=== PATIENT | female | born 1965 | race African-American/Black ===

== ENCOUNTER 2016-07-06 22:00 | Emergency (ER) | payer MEDICAID ==
[~2016-07-06] VITALS: Ht 162.6 cm; Wt 72.6 kg
[2016-07-06 22:21] VITALS: BP 110/75
[2016-07-06] MEDS ORDERED: Norco 5mg/325mg tab ORAL ONE (22:30)
[2016-07-06] MEDS ORDERED: IBUPROFEN600 MG ORAL (23:19)
[2016-07-06] MEDS ORDERED: HYDROCODON-ACE1 EA15 ORAL (23:19)
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
[2016-07-06 23:26] VITALS: BP 110/75
--- NOTE | 2016-07-07 11:07 | Diagnostic Imaging Report ---
Indications: hip pain Findings: Two views of the right hip were obtained. No acute fracture is demonstrated. Alignment of the hip is within normal limits. There is an intramedullary susanna within the visualized proximal femur. There is an old healed fracture of the shaft of the proximal femur. There is some narrowing of the right hip joint. Soft tissues are unremarkable. Impression: No acute injury
--- NOTE | 2016-07-07 11:07 | Diagnostic Imaging Report ---
Indication: Pain Findings: 3 views of the right shoulder were obtained. No acute fractures, malalignment, erosions or periostitis are identified. Bone mineralization is within normal limits. Soft tissues are unremarkable. Impression: Negative examination of the shoulder.
== END 2016-07-06 23:26 | disposition home or self-care (01) ==
LOC: EMR 22:16
DX: S40.011A Contusion of right shoulder, initial encounter (principal); S70.11XA Contusion of right thigh, initial encounter; W18.2XXA Fall in (into) shower or empty bathtub, initial encounter; Y93.9 Activity, unspecified; Y99.9 Unspecified external cause status; M25.50 Pain in unspecified joint; M79.1 Myalgia; Z88.0 Allergy status to penicillin
CPT/HCPCS: 99284